=== PATIENT | male | born 2000 | race Caucasian/White ===

== ENCOUNTER 2018-02-03 13:06 | Emergency (ER) | payer OTHER ==
[~2018-02-03] VITALS: Ht 175.3 cm; Wt 61.2 kg
--- NOTE | 2018-02-03 15:01 | RADIOLOGY REPORT ---
EXAMINATION: XR FOOT, RIGHT CLINICAL INFORMATION: Rule out foreign body. Puncture wound with nail. COMPARISON: None TECHNIQUE: AP, lateral, and oblique views of the right foot. FINDINGS: There are 2 punctate densities projecting over the soft tissues between the first and second digits which may be due to scarring artifact but otherwise indeterminate. No acute osseous abnormality seen. No metallic foreign body is seen. The joint spaces are preserved. IMPRESSION: Two punctate densities projecting in the region of the webspace between the first and second digits may be artifactual. Suggest correlation with physical exam findings. No fracture.
[2018-02-03] MEDS ORDERED: CIPRO500 M1 PO (15:10)
--- NOTE | 2018-02-03 15:10 | ED ANKLE/FOOT INJURY COMPLAINT ---
History of Present Illness General Chief Complaint: Foot or Ankle Injury Stated Complaint: STEPPED ON A NAIL Source: patient Exam Limitations: no limitations Vital Signs & Intake/Output Vital Signs & Intake/Output Vital Signs Date Time Temp Pulse Resp B/P B/P Pulse O2 O2 Flow FiO2 Mean Ox Delivery Rate 02/03 1540 90 122/78 02/03 1312 100.2 111 20 149/79 96 Room Air Allergies Coded Allergies: No Known Allergies (02/03/18) Reconcile Medications Ciprofloxacin HCl (Cipro) 500 MG TABLET 1 TAB PO BID SKIN WOUND Triage Note: PT TO ED S/P STEPPING ON NAIL 30 MINS AGO. WAS WEARING SHOES WHEN IT HAPPENED. UNKNOWN LAST TETANUS. Triage Nurses Notes Reviewed? yes Occurred: just prior to arrival Duration: hour(s): Timing: single episode today Severity: moderate Pain/Injury Location: Right: Foot. HPI: 17-year-old male presents emergency department after stepping on a nail. Patient states that he was working when he stepped on nail with his right foot. Patient believes the nail went into his foot about 1 inch. Patient controlled bleeding with pressure and presented here to the emergency department. Patient is unsure of last tetanus vaccine however states he was up to date while in high school. (Kiesha Mayfield) Past History Travel History Traveled to [place] past 21 day No Medical History Any Pertinent Medical History? none Surgical History Surgical History: non-contributory Psychosocial History What is your primary language Syriac Tobacco Use: Never used ETOH Use: denies use Illicit Drug Use: denies illicit drug use Family History Hx Contributory? No (Kiesha Mayfield) Review of Systems Review of Systems Constitutional: Reports: no symptoms. EENTM: Reports: no symptoms. Respiratory: Reports: no symptoms. Cardiovascular: Reports: no symptoms. GI: Reports: no symptoms. Genitourinary: Reports: no symptoms. Musculoskeletal: Reports: no symptoms. Skin: Reports: see HPI. Neurological/Psychological: Reports: no symptoms. Hematologic/Endocrine: Reports: no symptoms. Immunologic/Allergic: Reports: no symptoms. All Other Systems: Reviewed and Negative (Kiesha Mayfield) Physical Exam Physical Exam General Appearance: well developed/nourished, no apparent distress, alert, awake Head: atraumatic, normal appearance Eyes: Bilateral: normal appearance. Ears, Nose, Throat: hearing grossly normal Neck: normal inspection, supple, full range of motion Cardiovascular/Respiratory: no respiratory distress Back: normal inspection, normal range of motion Leg/Knee/Thigh Left: normal range of motion, normal inspection Leg/Knee/Thigh Right: normal range of motion, normal inspection Ankle Left: normal inspection, normal range of motion Ankle Right: normal inspection, normal range of motion Foot Left: normal inspection, normal range of motion Foot Right: puncture wound to plantar foot proximal to 5th digit Neuro/Vascular: normal motor function, normal sensation Tendon: normal tendon function Psychiatric: awake, alert, oriented x 3 Skin: normal color, warm/dry (Mariana CURRAN,Kiesha Burt) Progress Differential Diagnosis: fracture, sprain, puncture wound, laceration, foreign body Plan of Care: X-ray shows possibility of foreign body however this form body is not located in the area of puncture wound, most likely related to artifact on x-ray. Patient's puncture wound was cleaned here in the emergency department. He will begin Cipro antibiotics to cover for pseudomonas given puncture wound to rubber shoe. Patient was educated on signs and symptoms of skin infection. The patient agrees with plan of care. Diagnostic Imaging: Viewed by Me: Radiology Read. Discussed w/RAD: Radiology Read. Radiology Impression: PATIENT: AGUS SIDHU PRESENT AGE: 17 PATIENT ACCOUNT NO: [id number] : 98 LOCATION: [facility] ORDERING PHYSICIAN: Kiesha CURRAN SERVICE DATE: 02/03/18 EXAM TYPE: RAD - XRY-FOOT COMPLETE, R EXAMINATION: XR FOOT, RIGHT CLINICAL INFORMATION: Rule out foreign body. Puncture wound with nail. COMPARISON: None TECHNIQUE: AP, lateral, and oblique views of the right foot. FINDINGS: There are 2 punctate densities projecting over the soft tissues between the first and second digits which may be due to scarring artifact but otherwise indeterminate. No acute osseous abnormality seen. No metallic foreign body is seen. The joint spaces are preserved. IMPRESSION: Two punctate densities projecting in the region of the webspace between the first and second digits may be artifactual. Suggest correlation with physical exam findings. No fracture. DICTATED BY: Efren Salcido MD DATE/TIME DICTATED:02/03/181455 MUSIC GRAPHER:[place] DATE/TIME TRANSCRIBED:02/03/181455 CONFIDENTIAL, DO NOT COPY WITHOUT APPROPRIATE AUTHORIZATION. <Electronically signed in Other Vendor System> SIGNED BY: Efren Salcido MD 02/03/18 [id number] (Mariana CURRAN,Kiesha Burt) Departure Departure Disposition: HOME OR SELF CARE Condition: Stable Clinical Impression Primary Impression: Puncture wound Referrals: Patient Has No Primary Care Dr (PCP/Family) Additional Instructions: Take Cipro as prescribed to prevent skin infection. Keep wound covered and clean and dry. Soak in water and hydrogen peroxide. Monitor for redness, swelling, warmth, with any of these symptoms. Return to the emergency department. Please note that there might be incidental findings in your evaluation that are unrelated to the current emergency department visit. Please notify your primary care doctor about this emergency department visit in order to obtain and review all of the testing performed so that these incidental findings can be monitored as needed. If you had an x-ray performed, please understand that some fractures may not be seen on the initial set of x-rays. If your symptoms persist you might need a repeat set of x-rays to check for such a fracture. If you had a laceration evaluated, please understand that foreign bodies such as glass or wood may not be visible to the naked eye or on plain x-rays. If the wound becomes red, swollen, increasingly more painful or if there is any drainage from the wound, please have it reevaluated by a physician for the possibility of a retained foreign body. If you're unable to follow up as outlined in the discharge instructions please return to the emergency department. Thank you for choosing the [facility] Emergency Department for your care. It was a pleasure to serve you today. Departure Forms: Customer Survey General Discharge Information Prescriptions: Current Visit Scripts Ciprofloxacin HCl (Cipro) 1 TAB PO BID #14 TAB (Mariana CURRAN,Kiesha Burt) PA/MC KAY MACHINE OPERATOR Co-Sign Statement Statement: ED Attending supervision documentation- [] I saw and evaluated the patient. I have also reviewed all the pertinent lab results and diagnostic results. I agree with the findings and the plan of care as documented in the PA's/MC KAY MACHINE OPERATOR's documentation. [x] I have reviewed the ED Record and agree with the PA's/MC KAY MACHINE OPERATOR's documentation. [] Additions or exceptions (if any) to the PAs/MC KAY MACHINE OPERATOR's note and plan are summarized below: [] (Raghu Black DO
== END 2018-02-03 15:40 ==
LOC: ERH 13:06
DX: S91.331A Puncture wound without foreign body, right foot, initial encounter (principal); W45.0XXA Nail entering through skin, initial encounter; Y92.89 Other specified places as the place of occurrence of the external cause; Y93.89 Activity, other specified
CPT/HCPCS: 73630-RT